=== PATIENT | female | born 2005 | race Caucasian/White ===

== ENCOUNTER 2025-05-11 14:12 | Day surgery (SDC) | payer OTHER, SELFPAY ==
[2025-05-11 11:46] VITALS: BP 134/84
--- NOTE | 2025-05-11 12:09 | ED.GENMED ---
History of Present Illness
<Guera Awad PA-C - Last Filed: 05/11/25 16:13>
General
Chief Complaint: Esophageal Problem
Source: patient
Exam Limitations: none
Time Seen by Provider: 05/11/25 12:00
Nursing documentation reviewed up to this point in time: agreed with
History of Present Illness
History of Present Illness:
pt is a 19 yo F with h/o crohn's
says she swallowed her medication at 11 am with water and felt the pill get stuck in her upper esophagus
she did not aspirate, cough
she has been trying to gag herself to get it up but feels it is stuck
she is regurgitating liquids and spitting out saliva and uncomfrotable and anxious
no fever/chils/wheezing/sob
this has never happened beofre
Past History
<Guera Awad PA-C - Last Filed: 05/11/25 16:13>
Past History
ED Past Medical History: Other (crohns)
Social History
Tobacco: Non-smoker
Alcohol: None
Drug: None
Personal: Single
Living: with family
Review of Systems
<Guera Awad PA-C - Last Filed: 05/11/25 16:13>
Review of Systems
Allergies reviewed?: Yes
All Other Systems: Not applicable
Phy Exam
<Guera Awad PA-C - Last Filed: 05/11/25 16:13>
Physical Exam
Physical Exam:
GENERAL: Alert , anxious
EYE: pupils equal and reactive
NECK: Supple
ENT: o/p clr, mmm.
posterior pharynx normal
slightly muffled voice
spitting out secretions but not tripoding;
CARDIAC: Regular rate and rhythm .
LUNGS: Clear breath sounds bilaterally, no acute respiratory distress, no wheezes/rales/rhonchi
ABDOMEN: Soft, without focal tenderness, no r/g, no cvat, normal bowel sounds
NEUROLOGICAL: Alert and oriented, no focal neuro deficits
SKIN: Warm and dry, skin intact.
MUSCULOSKELETAL: No edema, well perfused. neg chandu's sign
PSYCH: anxious
Course
<Guera Awad PA-C - Last Filed: 05/11/25 16:13>
Orders/Labs/Results
Orders:
Orders
05/11/25 12:00
Glucagon [GlucaGen] 1 mg .ROUTE .STK-MED ONE
Glucagon [GlucaGen] 1 mg IV NOW STA
05/11/25 12:04
Complete Blood Count/With Diff Urgent
Comprehensive Metabolic Panel Urgent
05/11/25 12:24
Glucagon [GlucaGen] 1 mg IV NOW STA
05/11/25 13:02
Dexamethasone Pf [Decadron] 10 mg .ROUTE .STK-MED ONE
Lidocaine 2% Mpf [Xylocaine Mpf 2%] 100 mg .ROUTE .STK-MED ONE
Rocuronium [place] [Rocuronium] 50 mg .ROUTE .STK-MED ONE
Sugammadex Sodium [Bridion] 200 mg .ROUTE .STK-MED ONE
05/11/25 13:03
Dexmedetomidine HCl [Precedex] 200 mcg .ROUTE .STK-MED ONE
Fentanyl Citrate/Pf [Sublimaze] 100 mcg .ROUTE .STK-MED ONE
Midazolam HCl [Versed] 2 mg .ROUTE .STK-MED ONE
Ondansetron Injectable [Zofran] 4 mg .ROUTE .STK-MED ONE
Propofol [Diprivan] 40 ml .ROUTE .STK-MED
Succinylcholine Chloride [Succinylcholine] 200 mg .ROUTE .STK-MED ONE
05/11/25 13:15
Morphine Sulfate 2 mg IV NOW STA
05/11/25 13:16
Morphine Sulfate 2 mg .ROUTE .STK-MED ONE
05/11/25 13:50
Fentanyl Citrate/Pf [Sublimaze] 25 mcg IV [id number] PRN
Fentanyl Citrate/Pf [Sublimaze] 25 mcg IV PACU-Q5MPRN PRN
Fentanyl Citrate/Pf [Sublimaze] 50 mcg IV PACU-Q5MPRN PRN
Ondansetron Injectable [Zofran] 4 mg IV PACU-ONCEPRN PRN
Prochlorperazine [Compazine] 5 mg IV PACU-ONCEPRN PRN
Notify MD As Directed
Notify physician if: for SDS patients with known or suspected sleep obstructive sleep apnea, monitor in the
PACU.
Notify MD for any apneic/desaturation episodes
O2 Therapy [RESP] Urgent
Titrate/Wean O2 to maintain O2 sat greater than (%): 92
Special Instructions: -Provide supplemental oxygen to achieve O2 sat of 92% or greater.
-After 15 min, may wean O2 and discontinue if patient is able to maintain O2 sat of 92%
or greater during recovery period.
If patient is a discharge home, without oxygen therapy, notify anestheiologist if
unable to maintain O2 SAT of 92% or greater on room air for MD clearance.
05/11/25 14:00
Normosol (Mult Electrolytes) [Normosol-R/Plasmalyte-A] 1,000 ml IV PER PROTOCOL
05/11/25 14:14
Fentanyl Citrate/Pf [Sublimaze] 25 mcg IV [id number] PRN
Fentanyl Citrate/Pf [Sublimaze] 25 mcg IV PACU-Q5MPRN PRN
Fentanyl Citrate/Pf [Sublimaze] 50 mcg IV PACU-Q5MPRN PRN
Ondansetron Injectable [Zofran] 4 mg IV PACU-ONCEPRN PRN
Prochlorperazine [Compazine] 5 mg IV PACU-ONCEPRN PRN
05/11/25 14:15
Normosol (Mult Electrolytes) [Normosol-R/Plasmalyte-A] 1,000 ml IV PER PROTOCOL
05/11/25 14:52
Glycopyrrolate [Robinul] 0.2 mg .ROUTE .STK-MED ONE
ePHEDrine SULFATE [Emerphed] 50 mg .ROUTE .STK-MED ONE
Abnormal Lab Results
05/11/25
12:04
WBC 17.3 H 10^3/uL
(4.8-10.8)
Plt Count 413 H 10^3/uL
(130-400)
MPV 10.6 H fL
(7.4-10.4)
Abs Immat Gran (auto) 0.1 H 10^3/uL
(0-0.05)
Absolute Neuts (auto) 13.8 H 10^3/uL
(1.4-6.5)
Absolute Monos (auto) 0.8 H 10^3/uL
(0.1-0.6)
Neutrophils % 80.0 H %
(42.2-75.2)
Lymphocytes % 14.9 L %
(20.5-51.1)
Carbon Dioxide 18 L mmol/L
(22-30)
Glucose 100 H mg/dl
(70-99)
Calcium 10.4 H mg/dl
(8.4-10.2)
Total Protein 8.7 H g/dl
(6.3-8.2)
Albumin 5.6 H g/dl
(3.5-5.0)
05/11/25 12:04
05/11/25 12:04
Vital Signs
Initial and Last Documented VS:
Initial Vital Signs
Temp Pulse Resp BP Pulse Ox
36.6 C 90 16 134/84 98
05/11/25 11:46 05/11/25 11:46 05/11/25 11:46 05/11/25 11:46 05/11/25 11:46
Last Documented Vital Signs
Temp Pulse Resp BP Pulse Ox
36.3 C 107 19 98/86 100
05/11/25 14:35 05/11/25 14:57 05/11/25 14:57 05/11/25 15:01 05/11/25 14:57
<Camelia Walsh MD - Last Filed: 05/11/25 12:17>
Orders/Labs/Results
Orders:
Orders
05/11/25 12:00
Glucagon [GlucaGen] 1 mg .ROUTE .STK-MED ONE
Glucagon [GlucaGen] 1 mg IV NOW STA
05/11/25 12:04
Complete Blood Count/With Diff Urgent
Comprehensive Metabolic Panel Urgent
05/11/25 12:24
Glucagon [GlucaGen] 1 mg IV NOW STA
05/11/25 13:02
Dexamethasone Pf [Decadron] 10 mg .ROUTE .STK-MED ONE
Lidocaine 2% Mpf [Xylocaine Mpf 2%] 100 mg .ROUTE .STK-MED ONE
Rocuronium [place] [Rocuronium] 50 mg .ROUTE .STK-MED ONE
Sugammadex Sodium [Bridion] 200 mg .ROUTE .STK-MED ONE
05/11/25 13:03
Dexmedetomidine HCl [Precedex] 200 mcg .ROUTE .STK-MED ONE
Fentanyl Citrate/Pf [Sublimaze] 100 mcg .ROUTE .STK-MED ONE
Midazolam HCl [Versed] 2 mg .ROUTE .STK-MED ONE
Ondansetron Injectable [Zofran] 4 mg .ROUTE .STK-MED ONE
Propofol [Diprivan] 40 ml .ROUTE .STK-MED
Succinylcholine Chloride [Succinylcholine] 200 mg .ROUTE .STK-MED ONE
05/11/25 13:15
Morphine Sulfate 2 mg IV NOW STA
05/11/25 13:16
Morphine Sulfate 2 mg .ROUTE .STK-MED ONE
05/11/25 13:50
Fentanyl Citrate/Pf [Sublimaze] 25 mcg IV [id number] PRN
Fentanyl Citrate/Pf [Sublimaze] 25 mcg IV PACU-Q5MPRN PRN
Fentanyl Citrate/Pf [Sublimaze] 50 mcg IV PACU-Q5MPRN PRN
Ondansetron Injectable [Zofran] 4 mg IV PACU-ONCEPRN PRN
Prochlorperazine [Compazine] 5 mg IV PACU-ONCEPRN PRN
Notify MD As Directed
Notify physician if: for SDS patients with known or suspected sleep obstructive sleep apnea, monitor in the
PACU.
Notify MD for any apneic/desaturation episodes
O2 Therapy [RESP] Urgent
Titrate/Wean O2 to maintain O2 sat greater than (%): 92
Special Instructions: -Provide supplemental oxygen to achieve O2 sat of 92% or greater.
-After 15 min, may wean O2 and discontinue if patient is able to maintain O2 sat of 92%
or greater during recovery period.
If patient is a discharge home, without oxygen therapy, notify anestheiologist if
unable to maintain O2 SAT of 92% or greater on room air for MD clearance.
05/11/25 14:00
Normosol (Mult Electrolytes) [Normosol-R/Plasmalyte-A] 1,000 ml IV PER PROTOCOL
05/11/25 14:14
Fentanyl Citrate/Pf [Sublimaze] 25 mcg IV [id number] PRN
Fentanyl Citrate/Pf [Sublimaze] 25 mcg IV PACU-Q5MPRN PRN
Fentanyl Citrate/Pf [Sublimaze] 50 mcg IV PACU-Q5MPRN PRN
Ondansetron Injectable [Zofran] 4 mg IV PACU-ONCEPRN PRN
Prochlorperazine [Compazine] 5 mg IV PACU-ONCEPRN PRN
05/11/25 14:15
Normosol (Mult Electrolytes) [Normosol-R/Plasmalyte-A] 1,000 ml IV PER PROTOCOL
05/11/25 14:52
Glycopyrrolate [Robinul] 0.2 mg .ROUTE .STK-MED ONE
ePHEDrine SULFATE [Emerphed] 50 mg .ROUTE .STK-MED ONE
Abnormal Lab Results
05/11/25
12:04
WBC 17.3 H 10^3/uL
(4.8-10.8)
Plt Count 413 H 10^3/uL
(130-400)
MPV 10.6 H fL
(7.4-10.4)
Abs Immat Gran (auto) 0.1 H 10^3/uL
(0-0.05)
Absolute Neuts (auto) 13.8 H 10^3/uL
(1.4-6.5)
Absolute Monos (auto) 0.8 H 10^3/uL
(0.1-0.6)
Neutrophils % 80.0 H %
(42.2-75.2)
Lymphocytes % 14.9 L %
(20.5-51.1)
Carbon Dioxide 18 L mmol/L
(22-30)
Glucose 100 H mg/dl
(70-99)
Calcium 10.4 H mg/dl
(8.4-10.2)
Total Protein 8.7 H g/dl
(6.3-8.2)
Albumin 5.6 H g/dl
(3.5-5.0)
05/11/25 12:04
05/11/25 12:04
Vital Signs
Initial and Last Documented VS:
Initial Vital Signs
Temp Pulse Resp BP Pulse Ox
36.6 C 90 16 134/84 98
05/11/25 11:46 05/11/25 11:46 05/11/25 11:46 05/11/25 11:46 05/11/25 11:46
Last Documented Vital Signs
Temp Pulse Resp BP Pulse Ox
36.3 C 107 19 98/86 100
05/11/25 14:35 05/11/25 14:57 05/11/25 14:57 05/11/25 15:01 05/11/25 14:57
<Guera Awad PA-C - Last Filed: 05/11/25 16:13>
MDM/Problems Addressed
Differential Diagnosis Includes:
esophageal FB
MDM/Problems Addressed:
19 y/o F
crohns
pill stuck in esophagus
anxious, spitting saliva
regurgtiated liquid at home
no hypoxia
d/w GI
glucagon x 2 without improvement
will go to Gi suite.
<Guera Awad PA-C - Last Filed: 05/11/25 16:13>
*Pulse Oximetry
SaO2: 98
Oxygen Mode of Delivery: Room air
Patient hypoxic: no (100)
*Critical Care Note
Total Time (30-74mins, 75-104mins- exclusive of procedures): Not Applicable
ED Attending Note
<Guera Awad PA-C - Last Filed: 05/11/25 16:13>
-
Portions of this chart may have been created with voice recognition software.� Occasional wrong word or��sound alike� substitutions may have occurred due to the inherent limitations of voice recognition software.
<Camelia Walsh MD - Last Filed: 05/11/25 12:17>
ED Attending Note
Patient seen and examined by attending physician: Yes
I performed the substantive portion of visit, reviewed & personally made and approve the management plan that is documented in note by myself or CARLOS.: Yes
ED Attending Note:
Patient has no stridor. She is pulling her saliva and spitting. Patient has no wheezing and is breathing comfortably but appears anxious
Discharge Plan
Departure
Patient Disposition: GI LAB
Date of Disposition: 05/11/25
Time of Disposition: 12:49
Presentation/result/management discussed w/ accepting MD/DO: cristino
Condition: Fair
Covid-19: Not Applicable
Discharge Problem:
Esophageal foreign body
Interventions
Interventions:
*Risk Screen - Suicide Last Done: 05/11/25 11:46
*General Assessment Last Done: 05/11/25 12:30
*Neglect/Abuse Screening Last Done: 05/11/25 11:46
*ED- Fall Risk Assessment Last Done: 05/11/25 12:30
*ED COVID-19 Vaccine History Last Done: 05/11/25 12:30
*Nursing Disposition Last Done: 05/11/25 14:00
ED-EENT Assessment Last Done: 05/11/25 12:12
Discharge Date and Time
Discharge Date/Time: 05/11/25 14:04
[2025-05-11 12:28] LABS: Hematocrit 39.2 % (37.0-47.0); Hemoglobin 13.9 g/dL (12.0-16.0); Mean Corp Hgb Conc. 35.5 g/dL (33.0-37.0); Mean Corpuscular Volume 82.7 fL (81.0-99.0); Nucleated Red Blood Cells % 0 %; Platelet Count 413 10^3/uL (130-400); Red Cell Dist. Width 13.8 % (11.5-14.5)
[2025-05-11 12:50] LABS: AST (SGOT) 27 U/L (14-36); Albumin 5.6 g/dl (3.5-5.0); Alkaline Phosphatase 72 U/L (38-126); Blood Urea Nitrogen 10 mg/dl (7-17); Calcium 10.4 mg/dl (8.4-10.2); Carbon Dioxide 18 mmol/L (22-30); Chloride 105 mmol/L (98-107); Glucose 100 mg/dl (70-99); Potassium 4.4 mmol/L (3.5-5.1); Sodium 139 mmol/L (135-145); Total Protein 8.7 g/dl (6.3-8.2); eGFR > 60.00
[2025-05-11 13:00] LABS: ALT (SGPT) 34 U/L (0-35)
--- NOTE | 2025-05-11 13:05 | CON.GI ---
Consultation
-
Date/Time Consultation Requested: 05/11/25
Date/Time Consultation Performed: 05/11/25
Requesting Provider: Guera Awad
Performing Provider: Millie Dominguez
Reason for Consultation: Dysphagia/food impaction
Medical History
Chief Complaint / HPI
Chief Complaint: Dysphagia
History of Present Illness:
Sarah Tan is a 19 y.o. female with Crohns disease who presents with concern for pill impaction. She was in her normal state of health until taking a colestipol pill at 11 AM, feeling like it got lodged in the back of her throat. She has been
spitting up her saliva since, denies any difficulty breathing. She came to the ER one hour later. Noted to be regurgitating her saliva, given 2x doses of glucagon without improvement. She reports history of EGD many years ago, denies UGI crohns
involvement. No prior issues with swallowing or history of food impaction. No family history of esophageal cancer, CRC, celiac or IBD. She reports allergy to remicade, currently on Humira, states last colonoscopy was a few years ago and she was in
deep remission, takes colestipol for diarrhea. Her GI doctor is at [facility] [place].
Past Medical History
Past Medical History: Other (Crohns)
Past Surgical History: None
Social History
Tobacco: Non-Smoker
Alcohol: None
Drug: None
Family History
Family History: Reviewed & Not Pertinent
Allergies / Home Medications
Allergy/AdvReac Type Severity Reaction Status Date / Time
infliximab (From Remicade) Allergy Anaphylaxis Verified 05/11/25 11:48
Review of Systems
-
All other systems: A 12 pt ROS was Negative except as stated above in HPI
Vital Signs
Temp Pulse Resp BP Pulse Ox
98 F 74 15 134/84 100
05/11/25 11:46 05/11/25 12:30 05/11/25 12:05 05/11/25 11:46 05/11/25 12:30
Physical Exam
Exam
GEN: Appears uncomfortable, anxious, spitting up saliva
ABDOMEN: +BS. Soft, nontender and nondistended
Results
WBC 17.3 10^3/uL (4.8-10.8) H 05/11/25 12:04
Hgb 13.9 g/dL (12.0-16.0) 05/11/25 12:04
Hct 39.2 % (37.0-47.0) 05/11/25 12:04
MCV 82.7 fL (81.0-99.0) 05/11/25 12:04
Plt Count 413 10^3/uL (130-400) H 05/11/25 12:04
Absolute Neuts (auto) 13.8 10^3/uL (1.4-6.5) H 05/11/25 12:04
Sodium 139 mmol/L (135-145) 05/11/25 12:04
Potassium 4.4 mmol/L (3.5-5.1) 05/11/25 12:04
Chloride 105 mmol/L (98-107) 05/11/25 12:04
Carbon Dioxide 18 mmol/L (22-30) L 05/11/25 12:04
BUN 10 mg/dl (7-17) 05/11/25 12:04
Creatinine 0.7 mg/dL (0.6-1.0) 05/11/25 12:04
Calcium 10.4 mg/dl (8.4-10.2) H 05/11/25 12:04
Total Bilirubin 1.0 mg/dl (0.2-1.3) 05/11/25 12:04
AST 27 U/L (14-36) 05/11/25 12:04
ALT 34 U/L (0-35) 05/11/25 12:04
Alkaline Phosphatase 72 U/L (38-126) 05/11/25 12:04
Diagnostic Image Results:
Prior GI Procedures:
EGD:
Colonoscopy:
Assessment / Plan
-
19 y.o. female with acute dysphagia after swallowing a large pill, concern for pill impaction.
-s/p glucagon x2 without improvement
-keep NPO
-mild leukocytosis, will consider empiric coverage for aspiration pneumonia
-Plan for EGD today
-Additional recommendations pending results of procedure
-
-
Thank you for consultation and allowing me to participate in the patient's care. Please call the relocation associate GI physician during the after hours with any questions or concerns.
[2025-05-11] MEDS: MORPHINE SULFATE 2 MG IV (13:19)
[2025-05-11 13:39] VITALS: BMI 23.9
[2025-05-11 14:35] VITALS: BP 112/75; BP 134/81
[2025-05-11 14:45] VITALS: BP 113/66
[2025-05-11 15:01] VITALS: BP 98/86
== END 2025-05-11 14:44 | disposition home or self-care (01) ==
LOC: GI 14:12
PROVIDERS: Physician Assistant; ATTENDING PHYSICIAN Emergency Medicine; FAMILY PHYSICIAN Pediatrics
DX: T18.198A Other foreign object in esophagus causing other injury, initial encounter (principal); T18.128A Food in esophagus causing other injury, initial encounter; W44.F3XA Food entering into or through a natural orifice, initial encounter; R13.14 Dysphagia, pharyngoesophageal phase; K20.90 Esophagitis, unspecified without bleeding
CPT/HCPCS: 43239; 43247; 80053; 85025; 88305; 96374; 96375; 99284; J1610